=== PATIENT | male | born 1940 | race Two or more races ===

== ENCOUNTER 2021-12-02 11:02 | Day surgery (SDC) | payer MEDICARE, OTHER ==
[~2021-12-02] VITALS: Ht 175.3 cm; Wt 74.6 kg
[~2021-12-02 11:02] MED LIST: LIDOcaine 1%/PF 5ML 10 MG/ML VIAL ONE
[2021-12-02 11:25] VITALS: BP 152/63
[2021-12-02] MEDS ORDERED: CHOL20004 PO (11:39)
[2021-12-02] MEDS ORDERED: FERR325T28 PO (11:39)
[2021-12-02] MEDS ORDERED: CARV25TA2 PO (11:39)
[2021-12-02] MEDS ORDERED: MAGN200T8 PO (11:39)
[2021-12-02] MEDS ORDERED: ATOR40TA PO (11:39)
[2021-12-02] MEDS ORDERED: AMLO10TA13 PO (11:39)
[2021-12-02] MEDS ORDERED: DOXY-1 PO (11:39)
[2021-12-02] MEDS ORDERED: TIMO1DRO5 OP (11:39)
[2021-12-02] MEDS ORDERED: PRED5DRO23 LEFTEYE (11:39)
[2021-12-02] MEDS ORDERED: TICA90TA PO (11:39)
[2021-12-02] MEDS ORDERED: CYAN500T71 PO (11:39)
[2021-12-02] MEDS ORDERED: FURO-150 PO (11:39)
[2021-12-02] MEDS ORDERED: ASPI81TA52 PO (11:39)
[2021-12-02] MEDS ORDERED: INSU100V56 SQ (11:41)
[2021-12-02] MEDS ORDERED: INSU100V46 SQ (11:41)
[2021-12-02 14:45] VITALS: BP 144/57
== END 2021-12-02 15:00 | disposition home or self-care (01) ==
LOC: SSTAY O 11:02
PROVIDERS: ATTEND Radiology Vascular & Interventional Radiology
DX: Z45.2 Encounter for adjustment and management of vascular access device (principal); I10 Essential (primary) hypertension; E11.9 Type 2 diabetes mellitus without complications; Z79.4 Long term (current) use of insulin; Z88.0 Allergy status to penicillin; Z79.82 Long term (current) use of aspirin; Z79.899 Other long term (current) drug therapy; Z86.73 Personal history of transient ischemic attack (TIA), and cerebral infarction without residual deficits; Z89.512 Acquired absence of left leg below knee
CPT/HCPCS: 36589; J3490; A6449

== ENCOUNTER 2022-10-27 06:44 | Day surgery (SDC) | payer OTHER, MEDICARE ==
[~2022-10-27] VITALS: Ht 172.7 cm; Wt 70.4 kg
[~2022-10-27 06:44] MED LIST changes: +AMLO10TA13 PO; +ASPI81TA52 PO; +ATOR40TA PO; +CARV25TA2 PO; +CHOL20004 PO; +CYAN500T71 PO; +DOXY-1 PO; +FERR325T28 PO; +FURO-150 PO; +INSU100V46 SQ; +INSU100V56 SQ; -LIDOcaine 1%/PF 5ML 10 MG/ML VIAL ONE; +MAGN200T8 PO; +PRED5DRO23 LEFTEYE; +TICA90TA PO; +TIMO1DRO5 OP
[2022-10-27] MEDS ORDERED: normal saline 1000ml 1,000 ML IV PRN (07:05)
[2022-10-27] MEDS ORDERED: LACT1CAP65 PO (07:21)
[2022-10-27] MEDS ORDERED: ALB0.5UD IH (07:21)
[2022-10-27] MEDS ORDERED: lisinopril PO (07:21)
[2022-10-27] MEDS ORDERED: CLOP75TA34 PO (07:21)
[2022-10-27] MEDS ORDERED: HYDR-4069 PO (07:21)
[2022-10-27 08:15] VITALS: BP 136/64
[2022-10-27] MEDS ORDERED: iohexol 300mg/ml 100ml inj. ONE (08:40)
[2022-10-27] MEDS ORDERED: midazolam 1 mg/ML 2ml injection ONE (08:40)
[2022-10-27] MEDS ORDERED: LIDOcaine 1% 30ml preserv. free vial ONE (08:40)
[2022-10-27] MEDS ORDERED: fentaNYL/PF 50MCG/1 ML 2ML syringe ONE (08:40)
[2022-10-27] MEDS ORDERED: heparin 1,000 UNITS/NS 500ml 500 ML ONE (08:41)
[2022-10-27 08:54] LABS: BASOPHILS # (AUTO) 0.1 X10'3 (0-0.2); BASOPHILS % (AUTO) 1.3 % (0-1); EOSINOPHILS # (AUTO) 0.3 X10'3 (0-0.9); EOSINOPHILS % (AUTO) 5.7 % (0-6); HEMATOCRIT 33.3 % (42.0-52.0); HEMOGLOBIN 10.8 g/dl (14.0-17.9); LYMPHOCYTES # (AUTO) 1.1 X10'3 (1.1-4.8); LYMPHOCYTES % (AUTO) 18.1 % (21-51); MEAN CORPUSCULAR HEMOGLOBIN 29.8 PG (27.0-31.0); MEAN CORPUSCULAR HGB CONC 32.5 g/dL (33.0-36.5); MEAN CORPUSCULAR VOLUME 91.7 FL (78-98); MEAN PLATELET VOLUME 8.8 FL (7.4-10.4); MONOCYTES # (AUTO) 0.8 X10'3 (0-0.9); MONOCYTES % (AUTO) 12.8 % (2-12); NEUTROPHILS # (AUTO) 3.8 X10'3 (1.8-7.7); NEUTROPHILS % (AUTO) 62.1 % (42-75); PLATELET COUNT 201 X10'3 (140-440); RED BLOOD COUNT 3.63 X10'6 (4.70-6.10); RED CELL DISTRIBUTION WIDTH 16.2 % (11.5-14.5); WHITE BLOOD COUNT 6.1 X10'3 (4.5-11.0)
[2022-10-27 09:27] LABS: ALBUMIN 3.2 G/DL (3.4-5.0); ANION GAP 6 (8-16); BLOOD UREA NITROGEN 21 MG/DL (7-18); BUN/CREATININE RATIO 8.7 (10.0-20.0); CALCIUM 8.7 MG/DL (8.5-10.1); CHLORIDE 100 MMOL/L (99-107); CREATININE 2.42 MG/DL (0.60-1.10); GLUCOSE 94 MG/DL (70-104); SODIUM 138 MMOL/L (135-145); TOTAL CARBON DIOXIDE 31.8 MMOL/L (24-32); eGFR 26 ML/MIN
[2022-10-27 10:02] VITALS: BP 140/58
[2022-10-27 10:19] VITALS: BP 150/72
[2022-10-27 10:30] VITALS: BP 143/68
[2022-10-27 10:44] VITALS: BP 161/82
== END 2022-10-27 11:13 | disposition home or self-care (01) ==
LOC: SSTAY O 06:44
PROVIDERS: ATTEND Radiology Diagnostic Radiology
DX: T82.868A Thrombosis due to vascular prosthetic devices, implants and grafts, initial encounter (principal); E11.22 Type 2 diabetes mellitus with diabetic chronic kidney disease; I12.0 Hypertensive chronic kidney disease with stage 5 chronic kidney disease or end stage renal disease; N18.6 End stage renal disease; J44.9 Chronic obstructive pulmonary disease, unspecified; E78.5 Hyperlipidemia, unspecified; I35.0 Nonrheumatic aortic (valve) stenosis; Z95.2 Presence of prosthetic heart valve; Z88.0 Allergy status to penicillin; Z79.899 Other long term (current) drug therapy; Z79.4 Long term (current) use of insulin; Y83.2 Surgical operation with anastomosis, bypass or graft as the cause of abnormal reaction of the patient, or of later complication, without mention of misadventure at the time of the procedure; Y92.89 Other specified places as the place of occurrence of the external cause
CPT/HCPCS: 36415; 36901; 80048; 82948; 85025; 85610; 99152; 99153; C1769; J1644; J2250; J3010; J3490; J7030; Q9967; A4615; C1894